=== PATIENT | male | born 1980 | race Hispanic/Latino ===

== ENCOUNTER 2018-01-24 21:54 | Emergency (ER) | payer SELFPAY | END 2018-01-24 22:39 | disposition home or self-care (01) | LOC: EDH 21:54 | DX: M70.22 Olecranon bursitis, left elbow (principal); Z90.49 Acquired absence of other specified parts of digestive tract ==

== ENCOUNTER → 2024-05-25 | Outpatient (CLI) | payer BC ==
[2024-05-25 12:01] LABS: ALBUMIN 3.8 g/dL (3.5-5.0); TOTAL PROTEIN, SERUM 7.4 g/dL (6.0-8.3)
== END | disposition home or self-care (01) ==
LOC: RAH 10:12
PROVIDERS: ATTEND Student in an Organized Health Care Education/Training Program
DX: R07.9 Chest pain, unspecified (principal); R06.09 Other forms of dyspnea
CPT/HCPCS: 36415; 75574; 80053

== ENCOUNTER → 2024-06-13 | Outpatient (CLI) | payer BC | END | disposition home or self-care (01) | LOC: RAH 13:04 | PROVIDERS: ATTEND Student in an Organized Health Care Education/Training Program | DX: R07.9 Chest pain, unspecified (principal) | CPT/HCPCS: 93306 ==